=== PATIENT | female | born 1955 | race Two or more races ===

== ENCOUNTER 2020-09-12 05:18 | Inpatient (IN) | payer OTHER ==
[~2020-09-12] VITALS: Ht 165.1 cm; Wt 67.6 kg
[2020-09-12 05:56] LABS: Basophils # (auto) 0.1 10 ^3/uL (0-0.2); Basophils % (auto) 1.3 % (0.0-2.0); Eosinophils # (auto) 0.4 10 ^3/uL (0-0.8); Eosinophils % (auto) 8.1 % (0.0-7.0); Hematocrit 50.4 % (36.0-46.0); Hemoglobin 16.8 g/dL (12.2-16.2); Lymphocytes # (auto) 2.4 10 ^3/uL (0.4-5.4); Lymphocytes % (auto) 45.8 % (10.0-50.0); Mean Corpuscular Hemoglobin 29.4 pg (28.0-32.0); Mean Corpuscular Hgb Conc. 33.3 g/dL (32.0-36.0); Mean Corpuscular Volume 88.4 fL (80.0-100.0); Monocytes # (auto) 0.4 10 ^3/uL (0-1.3); Monocytes % (auto) 6.7 % (0.0-12.0); Neutrophils % (auto) 38.1 % (37.0-80.0); Nucleated Red Blood Cells % 0.1 %; Red Blood Cells 5.69 10^6/uL (4.0-5.20); Red Cell Distribution Width 16.8 % (11.8-14.3); White Blood Cell 5.3 10^3/uL (4.4-10.8)
[2020-09-12] MEDS ORDERED: LABETALOL HCL 5 MG/ML 4ML SYRINGE IV ONE (06:00)
[2020-09-12 06:13] LABS: Albumin 4.3 g/dL (3.4-5.0); Calcium 8.8 mg/dL (8.5-10.1)
[2020-09-12 06:18] LABS: BUN/Creatinine Ratio 15.5; Bilirubin, Total 0.4 mg/dL (0.2-1.0)
[2020-09-12] MEDS ORDERED: ALBUTEROL SULF 2.5 MG/0.5ML(0.5%) NEB SOLN NEB ONE (07:15)
[2020-09-12] MEDS ORDERED: methylPREDNISolone SOD SUCC 125 MG/2 ML VL IV ONE (07:15)
[2020-09-12] MEDS ORDERED: IPRATROPIUM BROM 0.5 MG/2.5ML INH SOL NEB ONE (07:15)
[2020-09-12] MEDS ORDERED: ASPirin 81 mg TAB PO ONE (07:45)
[2020-09-12] MEDS ORDERED: ENOXAPARIN SOD 60 MG/0.6 ML SYRINGE SC ONE (07:45)
[2020-09-12] MEDS ORDERED: NITROGLYCERIN 0.4 MG SL TAB SL PRN (10:30)
[2020-09-12] MEDS ORDERED: IOHEXOL 350 MG/ML 100ML IJ ONE (10:30)
[2020-09-12] MEDS ORDERED: NITROGLYCERIN 0.4MG/HR TOPICAL PATCH TD ONE (10:30)
[2020-09-12 10:41] VITALS: BP 152/88
[2020-09-12] MEDS: IPRATROPIUM BROM 0.5 MG/2.5ML INH SOL NEB SCH ×2 (11:39→20:10)
[2020-09-12] MEDS: ALBUTEROL SULF 2.5 MG/0.5ML(0.5%) NEB SOLN NEB SCH ×2 (11:39→20:10)
[2020-09-12] MEDS ORDERED: LISI-716 PO (14:56)
[2020-09-12] MEDS ORDERED: ATOR20TA PO (14:56)
[2020-09-12] MEDS ORDERED: ASPI-543 PO (14:56)
[2020-09-12] MEDS ORDERED: HYDR25TA4 PO (14:56)
[2020-09-12] MEDS ORDERED: VARE1TAB PO (14:56)
[2020-09-12] MEDS: hydrALAZINE HCL 20 MG/ML VL IV PRN (17:48)
[2020-09-12 17:51] LABS: Urine Bacteria NONE SEEN /hpf (None Seen); Urine Blood Negative /uL (Negative); Urine Specific Gravity 1.036 (1.001-1.035); Urine WBC 13 /hpf (0 - 5)
[2020-09-12] MEDS: ACETAMINOPHEN 500 MG TAB PO PRN (19:50)
[2020-09-12] MEDS: BUDESONIDE (INHALATION) 0.5 MG/2 ML NEB NEB SCH (20:10)
[2020-09-12 22:00] VITALS: BP 162/77
[2020-09-12] MEDS ORDERED: LISINOPRIL 10 MG TAB PO SCH (22:00)
[2020-09-12] MEDS: ATORVASTATIN 20 MG TAB PO SCH (22:02)
[2020-09-12] MEDS: methylPREDNISolone SOD SUCC 125 MG/2 ML VL IV SCH (22:02)
[2020-09-12] MEDS: ENOXAPARIN SOD 60 MG/0.6 ML SYRINGE SC SCH (22:03)
[2020-09-13] MEDS: HYDROcodone-ACET 5/325MG TAB PO PRN ×2 (02:39→12:45)
[2020-09-13 05:00] VITALS: BP 151/82
[2020-09-13 06:33] LABS: Basophils # (auto) 0 10 ^3/uL (0-0.2); Basophils % (auto) 0.1 % (0.0-2.0); Eosinophils # (auto) 0 10 ^3/uL (0-0.8); Eosinophils % (auto) 0.1 % (0.0-7.0); Hematocrit 44.3 % (36.0-46.0); Hemoglobin 15.6 g/dL (12.2-16.2); Lymphocytes # (auto) 0.3 10 ^3/uL (0.4-5.4); Lymphocytes % (auto) 5.2 % (10.0-50.0); Mean Corpuscular Hemoglobin 30.3 pg (28.0-32.0); Mean Corpuscular Hgb Conc. 35.1 g/dL (32.0-36.0); Mean Corpuscular Volume 86.3 fL (80.0-100.0); Monocytes # (auto) 0.1 10 ^3/uL (0-1.3); Monocytes % (auto) 1.2 % (0.0-12.0); Neutrophils # (auto) 5.5 10 ^3/uL (1.6-8.6); Neutrophils % (auto) 93.4 % (37.0-80.0); Nucleated Red Blood Cells % 0.1 %; Red Blood Cells 5.13 10^6/uL (4.0-5.20); Red Cell Distribution Width 16.5 % (11.8-14.3); White Blood Cell 5.9 10^3/uL (4.4-10.8)
[2020-09-13] MEDS: IPRATROPIUM BROM 0.5 MG/2.5ML INH SOL NEB SCH ×4 (06:46→22:38)
[2020-09-13] MEDS: BUDESONIDE (INHALATION) 0.5 MG/2 ML NEB NEB SCH ×2 (06:46→19:32)
[2020-09-13] MEDS: ALBUTEROL SULF 2.5 MG/0.5ML(0.5%) NEB SOLN NEB SCH ×4 (06:46→22:38)
[2020-09-13 06:51] LABS: Potassium 4.3 mmol/L (3.5-5.1)
[2020-09-13 06:53] LABS: INR 0.96 (0.9-1.15); Partial Thromboplastin Time 27.9 sec (23.0-31.2)
[2020-09-13 06:56] LABS: BUN/Creatinine Ratio 19.8; Calcium 8.7 mg/dL (8.5-10.1)
[2020-09-13 09:00] VITALS: BP 156/67
[2020-09-13] MEDS: methylPREDNISolone SOD SUCC 125 MG/2 ML VL IV SCH (09:16)
[2020-09-13] MEDS: ASPirin-EC 81 mg tab PO SCH (09:17)
[2020-09-13] MEDS: FAMOTIDINE 20 MG TAB PO SCH (09:18)
[2020-09-13] MEDS: HCTZ 25 MG TAB PO SCH (09:18)
[2020-09-13] MEDS: PANTOPRAZOLE 40 MG TAB PO SCH (09:18)
[2020-09-13] MEDS: LISINOPRIL 10 MG TAB PO SCH (09:19)
[2020-09-13] MEDS: ENOXAPARIN SOD 60 MG/0.6 ML SYRINGE SC SCH ×2 (09:19→21:49)
[2020-09-13] MEDS: MORPHINE SULFATE INJECTION 2 MG/ML SYRG IV PRN ×3 (09:20→19:52)
[2020-09-13] MEDS: ONDANSETRON HCL 4 MG/2 ML VIAL IV PRN (09:20)
[2020-09-13] MEDS ORDERED: FUROSEMIDE 20 MG/2 ML VIAL IV ONE (12:30)
[2020-09-13] MEDS: hydrALAZINE HCL 20 MG/ML VL IV PRN (12:46)
[2020-09-13 13:00] VITALS: BP 177/90
[2020-09-13] MEDS ORDERED: hydrALAZINE HCL 20 MG/ML VL IV PRN (15:30)
[2020-09-13] MEDS ORDERED: AZITHROMYCIN 500MG/ 250ML 250 ML IV ONE (15:45)
[2020-09-13] MEDS ORDERED: VANCOMYCIN PER PHARMACY 0 MG IV SCH (15:45)
[2020-09-13 17:00] VITALS: BP 129/75
[2020-09-13] MEDS ORDERED: PIPERACILLIN-TAZOB 3.375GM 100 ML IV SCH (18:00)
[2020-09-13] MEDS: methylPREDNISolone SOD SUCC 40 MG/ML VL IV SCH (21:11)
[2020-09-13] MEDS: ATORVASTATIN 20 MG TAB PO SCH (21:11)
[2020-09-13] MEDS: LORazepam 2MG/ML-1ML VIAL IV PRN (21:11)
[2020-09-13] MEDS: METOPROLOL TARTRATE 25 MG TAB PO SCH (21:12)
[2020-09-13] MEDS: PIPERACILLIN-TAZOB 3.375GM 100 ML IV SCH (21:52)
[2020-09-13] MEDS: VANCOMYCIN 1GM/250ML 250 ML IV SCH (23:00)
[2020-09-14] MEDS ORDERED: AZITHROMYCIN 500MG/ 250ML 250 ML IV ONE
[2020-09-14 05:15] VITALS: BP 152/85
[2020-09-14] MEDS: IPRATROPIUM BROM 0.5 MG/2.5ML INH SOL NEB SCH ×5 (05:51→22:14)
[2020-09-14] MEDS: BUDESONIDE (INHALATION) 0.5 MG/2 ML NEB NEB SCH ×2 (05:51→18:55)
[2020-09-14] MEDS: ALBUTEROL SULF 2.5 MG/0.5ML(0.5%) NEB SOLN NEB SCH ×5 (05:51→22:14)
[2020-09-14] MEDS: PIPERACILLIN-TAZOB 3.375GM 100 ML IV SCH ×4 (06:02→20:54)
[2020-09-14] MEDS: LORazepam 2MG/ML-1ML VIAL IV PRN ×2 (06:02→21:24)
[2020-09-14 06:50] LABS: Basophils # (auto) 0 10 ^3/uL (0-0.2); Eosinophils # (auto) 0 10 ^3/uL (0-0.8); Hemoglobin 15.2 g/dL (12.2-16.2); Lymphocytes # (auto) 0.3 10 ^3/uL (0.4-5.4); Lymphocytes % (auto) 3.4 % (10.0-50.0); Mean Corpuscular Hemoglobin 30.2 pg (28.0-32.0); Mean Corpuscular Hgb Conc. 34.6 g/dL (32.0-36.0); Mean Corpuscular Volume 87.2 fL (80.0-100.0); Monocytes # (auto) 0.1 10 ^3/uL (0-1.3); Monocytes % (auto) 1.5 % (0.0-12.0); Neutrophils # (auto) 8.3 10 ^3/uL (1.6-8.6); Neutrophils % (auto) 95.1 % (37.0-80.0); Red Blood Cells 5.05 10^6/uL (4.0-5.20); Red Cell Distribution Width 16.7 % (11.8-14.3); White Blood Cell 8.7 10^3/uL (4.4-10.8)
[2020-09-14 07:44] LABS: Cholesterol 181 mg/dL (< 200); HDL Cholesterol 88 mg/dL (40-59); LDL Cholesterol 80 mg/dL (< 100); Triglycerides 88 mg/dL (< 150)
[2020-09-14 07:51] LABS: BUN/Creatinine Ratio 28.3; Calcium 8.7 mg/dL (8.5-10.1)
[2020-09-14] MEDS ORDERED: CLOPIDOGREL 300 MG TAB PO ONE (08:30)
[2020-09-14] MEDS ORDERED: HEPARIN DRIP/D5W 100UNITS/ML 250 ML IV SCH (08:45)
[2020-09-14] MEDS: methylPREDNISolone SOD SUCC 40 MG/ML VL IV SCH ×2 (10:39→22:34)
[2020-09-14] MEDS: FUROSEMIDE 20 MG/2 ML VIAL IV SCH (10:39)
[2020-09-14] MEDS: ASPirin-EC 81 mg tab PO SCH (10:40)
[2020-09-14] MEDS: AZITHROMYCIN 500MG/ 250ML 250 ML IV SCH (10:40)
[2020-09-14] MEDS: FAMOTIDINE 20 MG TAB PO SCH (10:41)
[2020-09-14] MEDS: METOPROLOL TARTRATE 25 MG TAB PO SCH ×2 (10:41→22:35)
[2020-09-14] MEDS: PANTOPRAZOLE 40 MG TAB PO SCH (10:41)
[2020-09-14] MEDS: HCTZ 25 MG TAB PO SCH (10:42)
[2020-09-14] MEDS: LISINOPRIL 10 MG TAB PO SCH (10:43)
[2020-09-14] MEDS: ONDANSETRON HCL 4 MG/2 ML VIAL IV PRN ×2 (11:10→17:15)
[2020-09-14] MEDS: MORPHINE SULFATE INJECTION 2 MG/ML SYRG IV PRN ×3 (11:10→23:00)
[2020-09-14 13:33] VITALS: BP 169/80
[2020-09-14] MEDS: VANCOMYCIN 1GM/250ML 250 ML IV SCH (17:01)
[2020-09-14 17:08] VITALS: BP 125/74
[2020-09-14 18:12] LABS: INR 2.05 (0.9-1.15); Partial Thromboplastin Time 40.4 sec (23.0-31.2)
[2020-09-14] MEDS: HEPARIN DRIP/D5W 100UNITS/ML 250 ML IV SCH (18:54)
[2020-09-14] MEDS: HYDROcodone-ACET 5/325MG TAB PO PRN (21:25)
[2020-09-14 22:00] VITALS: BP 151/83
[2020-09-14] MEDS: ATORVASTATIN 20 MG TAB PO SCH (22:34)
[2020-09-15 01:22] LABS: INR 0.98 (0.9-1.15); Partial Thromboplastin Time 45.6 sec (23.0-31.2)
[2020-09-15] MEDS: ALBUTEROL SULF 2.5 MG/0.5ML(0.5%) NEB SOLN NEB PRN (02:17)
[2020-09-15] MEDS: IPRATROPIUM BROM 0.5 MG/2.5ML INH SOL NEB PRN (02:17)
[2020-09-15] MEDS: PIPERACILLIN-TAZOB 3.375GM 100 ML IV SCH ×4 (02:20→18:15)
[2020-09-15] MEDS: ONDANSETRON HCL 4 MG/2 ML VIAL IV PRN ×2 (02:29→18:16)
[2020-09-15] MEDS: ACETAMINOPHEN 500 MG TAB PO PRN (05:49)
[2020-09-15] MEDS: IPRATROPIUM BROM 0.5 MG/2.5ML INH SOL NEB SCH ×5 (06:27→22:47)
[2020-09-15] MEDS: ALBUTEROL SULF 2.5 MG/0.5ML(0.5%) NEB SOLN NEB SCH ×5 (06:27→22:48)
[2020-09-15 07:18] LABS: Basophils # (auto) 0 10 ^3/uL (0-0.2); Eosinophils # (auto) 0 10 ^3/uL (0-0.8); Hematocrit 44.7 % (36.0-46.0); Hemoglobin 15.2 g/dL (12.2-16.2); Lymphocytes # (auto) 0.5 10 ^3/uL (0.4-5.4); Lymphocytes % (auto) 6.2 % (10.0-50.0); Mean Corpuscular Hemoglobin 29.6 pg (28.0-32.0); Mean Corpuscular Volume 87.2 fL (80.0-100.0); Monocytes # (auto) 0.3 10 ^3/uL (0-1.3); Monocytes % (auto) 4.3 % (0.0-12.0); Neutrophils # (auto) 6.7 10 ^3/uL (1.6-8.6); Neutrophils % (auto) 89.5 % (37.0-80.0); Nucleated Red Blood Cells % 0.1 %; Red Blood Cells 5.13 10^6/uL (4.0-5.20); Red Cell Distribution Width 16.1 % (11.8-14.3); White Blood Cell 7.5 10^3/uL (4.4-10.8)
[2020-09-15 07:31] LABS: Calcium 8.6 mg/dL (8.5-10.1); Magnesium 2.7 mg/dL (1.6-2.6); Potassium 5.2 mmol/L (3.5-5.1)
[2020-09-15 07:37] LABS: BUN/Creatinine Ratio 27.5
[2020-09-15 08:57] VITALS: BP 128/77
[2020-09-15] MEDS: FUROSEMIDE 20 MG/2 ML VIAL IV SCH (09:25)
[2020-09-15] MEDS: methylPREDNISolone SOD SUCC 40 MG/ML VL IV SCH (09:25)
[2020-09-15 09:28] LABS: INR 1.02 (0.9-1.15)
[2020-09-15 09:36] VITALS: BP 127/72
[2020-09-15 09:41] LABS: Partial Thromboplastin Time 82.8 sec (23.0-31.2)
[2020-09-15] MEDS: FAMOTIDINE 20 MG TAB PO SCH (10:00)
[2020-09-15] MEDS ORDERED: MIDAZOLAM HCL 2MG/2ML 2ml VIAL (1mg/ml) IV ONE (10:00)
[2020-09-15] MEDS: AZITHROMYCIN 500MG/ 250ML 250 ML IV SCH (10:00)
[2020-09-15] MEDS: PANTOPRAZOLE 40 MG TAB PO SCH (10:00)
[2020-09-15] MEDS ORDERED: fentaNYL CITRATE 100 MCG/2 ML VL IV ONE (10:00)
[2020-09-15] MEDS ORDERED: LIDOCAINE VISCOUS 2% 15ML UD MT ONE (10:00)
[2020-09-15] MEDS: HEPARIN DRIP/D5W 100UNITS/ML 250 ML IV SCH (10:05)
[2020-09-15] MEDS: BUDESONIDE (INHALATION) 0.5 MG/2 ML NEB NEB SCH ×2 (10:49→22:48)
[2020-09-15] MEDS: ASPirin-EC 81 mg tab PO SCH (11:15)
[2020-09-15] MEDS: HCTZ 25 MG TAB PO SCH (11:16)
[2020-09-15] MEDS: METOPROLOL TARTRATE 25 MG TAB PO SCH ×2 (11:17→22:34)
[2020-09-15] MEDS ORDERED: LIDOCAINE 2%HCL (LOCAL ANESTH.) INJ 20ML MDV ONE (12:33)
[2020-09-15] MEDS ORDERED: ANGIOMAX 250 MG VIAL IV ONE (12:39)
[2020-09-15] MEDS ORDERED: VERAPAMIL 2.5MG/ML INJ 2ML VIAL IV ONE (12:39)
[2020-09-15] MEDS ORDERED: HEPARIN SODIUM (PORCINE) 5000 UNITS/ML 1ML VIAL ONE (12:40)
[2020-09-15] MEDS ORDERED: IODIXANOL 320MG/ML 100ML BTL IV ONE (12:40)
[2020-09-15] MEDS ORDERED: SODIUM CHL 0.9% 0 ML ONE (12:40)
[2020-09-15] MEDS ORDERED: VANCOMYCIN 1GM/250ML 250 ML IV SCH (17:00)
[2020-09-15 17:35] VITALS: BP 142/81
[2020-09-15] MEDS: MORPHINE SULFATE INJECTION 2 MG/ML SYRG IV PRN (18:16)
[2020-09-15] MEDS ORDERED: SODIUM BICARBONATE 50ML VIAL 75 ML in D5W 5% 1,000 ML IV ONE (18:30)
[2020-09-15 18:48] LABS: INR 0.97 (0.9-1.15); Partial Thromboplastin Time 30.8 sec (23.0-31.2)
[2020-09-15 22:00] VITALS: BP 133/85
[2020-09-15] MEDS: HYDROcodone-ACET 5/325MG TAB PO PRN (22:35)
[2020-09-15] MEDS: ATORVASTATIN 20 MG TAB PO SCH (22:36)
[2020-09-15] MEDS: APIXABAN 5 MG TAB PO SCH (22:36)
[2020-09-15] MEDS ORDERED: NICOTINE 14 MG/24HR TOPICAL PATCH TD ONE (23:30)
[2020-09-16] MEDS: PIPERACILLIN-TAZOB 3.375GM 100 ML IV SCH ×3 (01:54→14:21)
[2020-09-16] MEDS: MORPHINE SULFATE INJECTION 2 MG/ML SYRG IV PRN ×3 (01:55→20:36)
[2020-09-16] MEDS: IPRATROPIUM BROM 0.5 MG/2.5ML INH SOL NEB PRN (02:30)
[2020-09-16] MEDS: ALBUTEROL SULF 2.5 MG/0.5ML(0.5%) NEB SOLN NEB PRN (02:30)
[2020-09-16] MEDS: ONDANSETRON HCL 4 MG/2 ML VIAL IV PRN ×3 (03:05→20:25)
[2020-09-16 05:00] VITALS: BP 119/79
[2020-09-16] MEDS: HYDROcodone-ACET 5/325MG TAB PO PRN (05:15)
[2020-09-16] MEDS: IPRATROPIUM BROM 0.5 MG/2.5ML INH SOL NEB SCH ×5 (06:09→22:58)
[2020-09-16] MEDS: ALBUTEROL SULF 2.5 MG/0.5ML(0.5%) NEB SOLN NEB SCH ×5 (06:09→22:58)
[2020-09-16] MEDS: BUDESONIDE (INHALATION) 0.5 MG/2 ML NEB NEB SCH ×2 (06:09→19:13)
[2020-09-16 06:31] LABS: Basophils # (auto) 0 10 ^3/uL (0-0.2); Basophils % (auto) 0.1 % (0.0-2.0); Eosinophils # (auto) 0 10 ^3/uL (0-0.8); Eosinophils % (auto) 0.1 % (0.0-7.0); Hematocrit 42.3 % (36.0-46.0); Hemoglobin 14.3 g/dL (12.2-16.2); Lymphocytes % (auto) 17.9 % (10.0-50.0); Mean Corpuscular Hemoglobin 29.6 pg (28.0-32.0); Mean Corpuscular Hgb Conc. 33.9 g/dL (32.0-36.0); Mean Corpuscular Volume 87.3 fL (80.0-100.0); Monocytes # (auto) 0.6 10 ^3/uL (0-1.3); Monocytes % (auto) 11.7 % (0.0-12.0); Neutrophils # (auto) 3.9 10 ^3/uL (1.6-8.6); Neutrophils % (auto) 70.2 % (37.0-80.0); Red Blood Cells 4.85 10^6/uL (4.0-5.20); White Blood Cell 5.5 10^3/uL (4.4-10.8)
[2020-09-16 08:00] VITALS: BP 140/78
[2020-09-16 09:08] VITALS: BP 140/78
[2020-09-16] MEDS: METOPROLOL TARTRATE 25 MG TAB PO SCH ×3 (10:00→22:34)
[2020-09-16] MEDS: APIXABAN 5 MG TAB PO SCH ×2 (10:29→22:31)
[2020-09-16] MEDS: PANTOPRAZOLE 40 MG TAB PO SCH (10:29)
[2020-09-16] MEDS: FAMOTIDINE 20 MG TAB PO SCH (10:29)
[2020-09-16] MEDS: ASPirin-EC 81 mg tab PO SCH (10:30)
[2020-09-16] MEDS: AZITHROMYCIN 500MG/ 250ML 250 ML IV SCH (10:30)
[2020-09-16] MEDS: HCTZ 25 MG TAB PO SCH (10:32)
[2020-09-16 11:02] LABS: Hepatitis B Surface Antibody Positive
[2020-09-16 11:05] LABS: BUN/Creatinine Ratio 28.4; Calcium 7.7 mg/dL (8.5-10.1); Potassium 4.1 mmol/L (3.5-5.1)
[2020-09-16 11:37] LABS: Hepatitis A Total Antibody Negative
[2020-09-16 13:00] VITALS: BP 123/68
[2020-09-16 15:24] LABS: Hepatitis B Core Total AB Negative; Hepatitis B Surface Antigen Negative (Negative)
[2020-09-16 16:54] VITALS: BP 120/68
[2020-09-16 22:00] VITALS: BP 131/61
[2020-09-16] MEDS: ATORVASTATIN 20 MG TAB PO SCH (22:31)
[2020-09-17] MEDS ORDERED: NICOTINE 14 MG/24HR TOPICAL PATCH TD SCH ×2 (01:00)
[2020-09-17 05:00] VITALS: BP 117/64
[2020-09-17] MEDS: MORPHINE SULFATE INJECTION 2 MG/ML SYRG IV PRN ×3 (05:17→15:29)
[2020-09-17] MEDS: IPRATROPIUM BROM 0.5 MG/2.5ML INH SOL NEB SCH ×3 (07:42→14:39)
[2020-09-17] MEDS: ALBUTEROL SULF 2.5 MG/0.5ML(0.5%) NEB SOLN NEB SCH ×3 (07:42→14:39)
[2020-09-17] MEDS: BUDESONIDE (INHALATION) 0.5 MG/2 ML NEB NEB SCH (07:43)
[2020-09-17 09:48] LABS: BUN/Creatinine Ratio 28.6; Calcium 8.1 mg/dL (8.5-10.1); Potassium 4.4 mmol/L (3.5-5.1)
[2020-09-17] MEDS: AZITHROMYCIN 500MG/ 250ML 250 ML IV SCH (09:54)
[2020-09-17] MEDS: PANTOPRAZOLE 40 MG TAB PO SCH (09:57)
[2020-09-17] MEDS: APIXABAN 5 MG TAB PO SCH (09:58)
[2020-09-17] MEDS: ASPirin-EC 81 mg tab PO SCH (09:58)
[2020-09-17] MEDS: METOPROLOL TARTRATE 25 MG TAB PO SCH (10:00)
[2020-09-17] MEDS: HCTZ 25 MG TAB PO SCH (10:02)
[2020-09-17] MEDS: FAMOTIDINE 20 MG TAB PO SCH (10:07)
[2020-09-17 12:36] VITALS: BP 98/65
[2020-09-17 16:24] VITALS: BP 117/64
[2020-09-17 16:36] VITALS: BP 149/78
[2020-09-20 13:50] LABS: Hepatitis C Antibody Negative (Negative)
[2020-09-22] MEDS ORDERED: APIXABAN 5 MG TAB PO SCH (22:00)
== END 2020-09-17 19:10 | disposition home or self-care (01) | DRG 175 ==
LOC: EDBD 05:18 → ER 05:18 → TELE 10:24 → TELE-WESTW 14:34
PROVIDERS: ADMIT Nurse Practitioner Acute Care; ATTEND Internal Medicine
PROC: 5A09357 Assistance with Respiratory Ventilation, Less than 24 Consecutive Hours, Continuous Positive Airway Pressure (ICD-10-PCS; 2020-09-12)
PROC: 4A023N7 Measurement of Cardiac Sampling and Pressure, Left Heart, Percutaneous Approach (ICD-10-PCS; principal; 2020-09-15)
PROC: B211YZZ Fluoroscopy of Multiple Coronary Arteries using Other Contrast (ICD-10-PCS; 2020-09-15)
PROC: B215YZZ Fluoroscopy of Left Heart using Other Contrast (ICD-10-PCS; 2020-09-15)
PROC: B245ZZ4 Ultrasonography of Left Heart, Transesophageal (ICD-10-PCS; 2020-09-15)
DX: I26.99 Other pulmonary embolism without acute cor pulmonale (principal); I21.A1 Myocardial infarction type 2; J96.21 Acute and chronic respiratory failure with hypoxia; J96.22 Acute and chronic respiratory failure with hypercapnia; N18.31 Chronic kidney disease, stage 3a; I12.9 Hypertensive chronic kidney disease with stage 1 through stage 4 chronic kidney disease, or unspecified chronic kidney disease; J43.9 Emphysema, unspecified; Z20.822 Contact with and (suspected) exposure to COVID-19; F17.210 Nicotine dependence, cigarettes, uncomplicated; Z79.01 Long term (current) use of anticoagulants; Z90.710 Acquired absence of both cervix and uterus; Z71.6 Tobacco abuse counseling
CPT/HCPCS: 36415; 36600; 71045; 71275; 80048; 80053; 80061; 80202; 81001; 82565; 82805; 83036; 83605; 83735; 83880; 84484; 85025; 85049; 85379; 85610; 85730; 86141; 86703; 86704; 86706; 86708; 86803; 87040; 87340; 87426; 93005; 93306; 93312; 93458; 93970; 94640; 94660; 96372; 96374; 99152; 99291; G0378; J2250; J2405; J2543; Q9967

== ENCOUNTER 2020-09-21 16:06 | Inpatient (IN) | payer OTHER ==
[~2020-09-21] VITALS: Ht 170.2 cm; Wt 75.0 kg
[~2020-09-21 16:06] MED LIST: ASPI-543 PO; ATOR20TA PO; HYDR25TA4 PO; LISI-716 PO; VARE1TAB PO
[2020-09-21] MEDS ORDERED: IPRATROPIUM BROM 0.5 MG/2.5ML INH SOL NEB ONE (16:30)
[2020-09-21] MEDS ORDERED: ALBUTEROL SULF 2.5 MG/0.5ML(0.5%) NEB SOLN NEB ONE (16:30)
[2020-09-21] MEDS ORDERED: methylPREDNISolone SOD SUCC 125 MG/2 ML VL IV ONE (16:30)
[2020-09-21 18:06] LABS: Eosinophils # (auto) 0 10 ^3/uL (0-0.8); Monocytes # (auto) 0.4 10 ^3/uL (0-1.3); Monocytes % (auto) 4.7 % (0.0-12.0); Red Cell Distribution Width 15.8 % (11.8-14.3)
[2020-09-21 18:08] LABS: Basophils # (auto) 0.1 10 ^3/uL (0-0.2); Basophils % (auto) 0.7 % (0.0-2.0); Eosinophils % (auto) 0.1 % (0.0-7.0); Hematocrit 18.9 % (36.0-46.0); Lymphocytes # (auto) 0.9 10 ^3/uL (0.4-5.4); Lymphocytes % (auto) 9.8 % (10.0-50.0); Mean Corpuscular Hemoglobin 29.9 pg (28.0-32.0); Mean Corpuscular Hgb Conc. 34.5 g/dL (32.0-36.0); Mean Corpuscular Volume 86.7 fL (80.0-100.0); Neutrophils # (auto) 7.4 10 ^3/uL (1.6-8.6); Neutrophils % (auto) 84.7 % (37.0-80.0); Red Blood Cells 2.18 10^6/uL (4.0-5.20); White Blood Cell 8.7 10^3/uL (4.4-10.8)
[2020-09-21 18:22] LABS: Calcium 8.1 mg/dL (8.5-10.1); Hemoglobin 6.5 g/dL (12.2-16.2); Potassium 3.9 mmol/L (3.5-5.1)
[2020-09-21 18:27] LABS: Bilirubin, Total 0.3 mg/dL (0.2-1.0); Total Protein 5.5 g/dL (6.4-8.2)
[2020-09-21] MEDS ORDERED: IOHEXOL 350 MG/ML 100ML IJ ONE (18:34)
[2020-09-21] MEDS ORDERED: SODIUM CHLORIDE 0.9% 500 ML IV ONE (19:15)
[2020-09-21] MEDS ORDERED: MORPHINE SULF INJ 2 MG/ML SYRINGE 1ML IV PRN (19:15)
[2020-09-21] MEDS ORDERED: NITROGLYCERIN 0.4 MG SL TAB SL PRN (19:15)
[2020-09-21] MEDS: IPRATROPIUM BROM 0.5 MG/2.5ML INH SOL NEB PRN (19:42)
[2020-09-21] MEDS: ALBUTEROL SULF 2.5 MG/0.5ML(0.5%) NEB SOLN NEB PRN (19:42)
[2020-09-21 22:46] VITALS: BP 110/60
[2020-09-21 23:01] VITALS: BP 102/60
[2020-09-21] MEDS ORDERED: PNEUMOCOCCAL VACC POLYS 25 MCG/0.5 ML VIAL IM ONE (23:15)
[2020-09-21] MEDS ORDERED: METO25TA5 PO (23:16)
[2020-09-21] MEDS: SUCRALFATE 1 GM/10 ML ORAL SUSP PO SCH (23:32)
[2020-09-21] MEDS: PANTOPRAZOLE 40 MG/10 ML VIAL INJ IV SCH (23:33)
[2020-09-22] VITALS (10 sets, daily range): BP systolic 101–143; BP diastolic 62–77
[2020-09-22] MEDS ORDERED: FERR-7 PO (04:59)
[2020-09-22] MEDS ORDERED: MONT5CHW23 PO (04:59)
[2020-09-22] MEDS ORDERED: LOSA100T25 PO (04:59)
[2020-09-22] MEDS ORDERED: OLAN1TAB19 PO (04:59)
[2020-09-22] MEDS ORDERED: FEXO-42 PO (04:59)
[2020-09-22] MEDS ORDERED: GABA100C9 PO (04:59)
[2020-09-22] MEDS: SUCRALFATE 1 GM/10 ML ORAL SUSP PO SCH ×4 (06:24→21:16)
[2020-09-22] MEDS ORDERED: PNEUMOCOCCAL VACC POLYS 25 MCG/0.5 ML VIAL IM ONE (07:00)
[2020-09-22 08:02] LABS: Basophils # (auto) 0 10 ^3/uL (0-0.2); Basophils % (auto) 0.4 % (0.0-2.0); Eosinophils # (auto) 0 10 ^3/uL (0-0.8); Hemoglobin 8.5 g/dL (12.2-16.2); Lymphocytes # (auto) 0.5 10 ^3/uL (0.4-5.4); Lymphocytes % (auto) 6.4 % (10.0-50.0); Mean Corpuscular Hemoglobin 31.2 pg (28.0-32.0); Mean Corpuscular Hgb Conc. 35.5 g/dL (32.0-36.0); Mean Corpuscular Volume 87.8 fL (80.0-100.0); Monocytes # (auto) 0.2 10 ^3/uL (0-1.3); Monocytes % (auto) 2.3 % (0.0-12.0); Neutrophils # (auto) 7.8 10 ^3/uL (1.6-8.6); Neutrophils % (auto) 90.9 % (37.0-80.0); Red Blood Cells 2.73 10^6/uL (4.0-5.20); Red Cell Distribution Width 14.5 % (11.8-14.3); White Blood Cell 8.5 10^3/uL (4.4-10.8)
[2020-09-22 08:26] LABS: Albumin 3.2 g/dL (3.4-5.0); Calcium 7.8 mg/dL (8.5-10.1); Potassium 4.1 mmol/L (3.5-5.1)
[2020-09-22 08:30] LABS: BUN/Creatinine Ratio 54.1; Bilirubin, Total 0.4 mg/dL (0.2-1.0); Total Protein 5.5 g/dL (6.4-8.2)
[2020-09-22] MEDS: PANTOPRAZOLE 40 MG/10 ML VIAL INJ IV SCH ×2 (08:33→21:16)
[2020-09-22 12:59] LABS: Urine Bacteria NONE SEEN /hpf (None Seen); Urine Blood Negative /uL (Negative); Urine Specific Gravity 1.019 (1.001-1.035); Urine WBC 1 /hpf (0 - 5)
[2020-09-22] MEDS: ALBUTEROL SULF 2.5 MG/0.5ML(0.5%) NEB SOLN NEB PRN ×2 (13:31→19:05)
[2020-09-22] MEDS: IPRATROPIUM BROM 0.5 MG/2.5ML INH SOL NEB PRN ×2 (13:31→19:05)
[2020-09-22] MEDS: ACETAMINOPHEN 325 MG TAB PO PRN (14:53)
[2020-09-22 15:01] LABS: Hematocrit 23.5 % (36.0-46.0); Hemoglobin 8.1 g/dL (12.2-16.2)
[2020-09-22 17:27] LABS: INR 0.97 (0.9-1.15); Partial Thromboplastin Time < 20.0 sec (23.0-31.2)
[2020-09-22] MEDS: ATORVASTATIN 20 MG TAB PO SCH (21:16)
[2020-09-22] MEDS ORDERED: HYDROcodone-ACET 5/325MG TAB PO ONE (23:30)
[2020-09-23] MEDS: ALBUTEROL SULF 2.5 MG/0.5ML(0.5%) NEB SOLN NEB PRN ×5 (04:13→22:31)
[2020-09-23] MEDS: IPRATROPIUM BROM 0.5 MG/2.5ML INH SOL NEB PRN ×5 (04:13→22:31)
[2020-09-23 05:00] VITALS: BP 102/57
[2020-09-23] MEDS: ACETAMINOPHEN 325 MG TAB PO PRN ×2 (05:12→18:41)
[2020-09-23 06:57] LABS: Hematocrit 20.5 % (36.0-46.0); Hemoglobin 7.2 g/dL (12.2-16.2)
[2020-09-23] MEDS: SUCRALFATE 1 GM/10 ML ORAL SUSP PO SCH ×4 (07:00→21:03)
[2020-09-23 09:00] VITALS: BP 138/71
[2020-09-23] MEDS: PANTOPRAZOLE 40 MG/10 ML VIAL INJ IV SCH ×2 (09:09→21:03)
[2020-09-23] MEDS ORDERED: LIDOCAINE 2%HCL (LOCAL ANESTH.) INJ 20ML MDV ONE (12:50)
[2020-09-23] MEDS ORDERED: MIDAZOLAM HCL 1MG/1ML-2 ML VIAL ONE (12:52)
[2020-09-23] MEDS ORDERED: fentaNYL CITRATE 100 MCG/2 ML VL ONE (12:52)
[2020-09-23 16:06] LABS: Hemoglobin 7.4 g/dL (12.2-16.2)
[2020-09-23 17:00] VITALS: BP 124/66
[2020-09-23] MEDS: ATORVASTATIN 20 MG TAB PO SCH (21:03)
[2020-09-23 22:00] VITALS: BP 106/72
[2020-09-23] MEDS: ALPRAZolam 0.5 MG TAB PO PRN (23:46)
[2020-09-24] VITALS (10 sets, daily range): BP systolic 104–133; BP diastolic 58–76
[2020-09-24] MEDS: IPRATROPIUM BROM 0.5 MG/2.5ML INH SOL NEB PRN ×5 (03:23→23:40)
[2020-09-24] MEDS: ALBUTEROL SULF 2.5 MG/0.5ML(0.5%) NEB SOLN NEB PRN ×5 (03:23→23:40)
[2020-09-24 05:48] LABS: Basophils # (auto) 0 10 ^3/uL (0-0.2); Eosinophils # (auto) 0 10 ^3/uL (0-0.8); Lymphocytes # (auto) 0.9 10 ^3/uL (0.4-5.4); Monocytes # (auto) 0.7 10 ^3/uL (0-1.3); Nucleated Red Blood Cells % 0.1 %
[2020-09-24 05:52] LABS: Basophils % (auto) 0.1 % (0.0-2.0); Eosinophils % (auto) 0.4 % (0.0-7.0); Hematocrit 19.5 % (36.0-46.0); Lymphocytes % (auto) 8.6 % (10.0-50.0); Mean Corpuscular Hemoglobin 32.1 pg (28.0-32.0); Mean Corpuscular Hgb Conc. 35.7 g/dL (32.0-36.0); Mean Corpuscular Volume 89.8 fL (80.0-100.0); Monocytes % (auto) 7.2 % (0.0-12.0); Neutrophils # (auto) 8.4 10 ^3/uL (1.6-8.6); Neutrophils % (auto) 83.7 % (37.0-80.0); Red Blood Cells 2.17 10^6/uL (4.0-5.20); Red Cell Distribution Width 14.6 % (11.8-14.3)
[2020-09-24 06:10] LABS: BUN/Creatinine Ratio 27.8; Calcium 7.4 mg/dL (8.5-10.1); Potassium 3.4 mmol/L (3.5-5.1)
[2020-09-24] MEDS: SUCRALFATE 1 GM/10 ML ORAL SUSP PO SCH ×4 (07:00→23:26)
[2020-09-24] MEDS ORDERED: FLUO10TA18 PO (07:36)
[2020-09-24] MEDS: PANTOPRAZOLE 40 MG/10 ML VIAL INJ IV SCH ×2 (09:30→23:26)
[2020-09-24] MEDS ORDERED: OLANZapine 5 MG TAB PO ONE (10:30)
[2020-09-24] MEDS ORDERED: FLUoxetine HCL 10 MG CAP PO ONE (10:30)
[2020-09-24] MEDS: OXYCODONE W/ ACETAMINOPHEN 5/325MG TABLET PO PRN (10:53)
[2020-09-24] MEDS: ALPRAZolam 0.5 MG TAB PO PRN (12:57)
[2020-09-24 14:12] LABS: Hematocrit 20.4 % (36.0-46.0); Hemoglobin 7.2 g/dL (12.2-16.2)
[2020-09-24] MEDS ORDERED: LIDOCAINE VISCOUS 2% 15ML UD ONE (15:26)
[2020-09-24] MEDS ORDERED: MIDAZOLAM HCL 5 MG/ML-1ML VIAL ONE (15:27)
[2020-09-24] MEDS ORDERED: fentaNYL CITRATE 100 MCG/2 ML VL ONE (15:27)
[2020-09-24] MEDS ORDERED: diphenhdrAMINE HCL 50 MG/1 ML VL ONE (15:27)
[2020-09-24] MEDS: ATORVASTATIN 20 MG TAB PO SCH (23:26)
[2020-09-24] MEDS: OLANZapine 5 MG TAB PO SCH ×2 (23:27→23:39)
[2020-09-25] VITALS (9 sets, daily range): BP systolic 115–155; BP diastolic 65–86
[2020-09-25 01:23] LABS: Hemoglobin 8.8 g/dL (12.2-16.2)
[2020-09-25] MEDS: SUCRALFATE 1 GM/10 ML ORAL SUSP PO SCH ×4 (06:54→22:52)
[2020-09-25 07:15] LABS: Basophils # (auto) 0 10 ^3/uL (0-0.2); Eosinophils # (auto) 0.1 10 ^3/uL (0-0.8); Eosinophils % (auto) 0.9 % (0.0-7.0); Hemoglobin 7.7 g/dL (12.2-16.2); Lymphocytes # (auto) 0.7 10 ^3/uL (0.4-5.4); Mean Corpuscular Hemoglobin 31.8 pg (28.0-32.0); Nucleated Red Blood Cells % 0.1 %; White Blood Cell 8.9 10^3/uL (4.4-10.8)
[2020-09-25 07:18] LABS: Basophils % (auto) 0.3 % (0.0-2.0); Hematocrit 21.5 % (36.0-46.0); Lymphocytes % (auto) 7.5 % (10.0-50.0); Mean Corpuscular Volume 88.3 fL (80.0-100.0); Monocytes # (auto) 0.5 10 ^3/uL (0-1.3); Monocytes % (auto) 5.9 % (0.0-12.0); Neutrophils # (auto) 7.6 10 ^3/uL (1.6-8.6); Neutrophils % (auto) 85.4 % (37.0-80.0); Red Blood Cells 2.43 10^6/uL (4.0-5.20); Red Cell Distribution Width 14.4 % (11.8-14.3)
[2020-09-25 07:28] LABS: Potassium 3.7 mmol/L (3.5-5.1)
[2020-09-25 07:41] LABS: Albumin 2.5 g/dL (3.4-5.0); BUN/Creatinine Ratio 15.5; Bilirubin, Total 0.7 mg/dL (0.2-1.0); Calcium 7.3 mg/dL (8.5-10.1); Magnesium 2.4 mg/dL (1.6-2.6); Total Protein 4.9 g/dL (6.4-8.2)
[2020-09-25] MEDS: ALBUTEROL SULF 2.5 MG/0.5ML(0.5%) NEB SOLN NEB PRN ×2 (07:58→22:30)
[2020-09-25] MEDS: IPRATROPIUM BROM 0.5 MG/2.5ML INH SOL NEB PRN (07:58)
[2020-09-25] MEDS: OXYCODONE W/ ACETAMINOPHEN 5/325MG TABLET PO PRN ×2 (09:55→16:54)
[2020-09-25] MEDS: FLUoxetine HCL 10 MG CAP PO SCH (09:56)
[2020-09-25] MEDS: PANTOPRAZOLE 40 MG/10 ML VIAL INJ IV SCH ×2 (09:56→22:52)
[2020-09-25] MEDS ORDERED: OLANZapine 5 MG TAB PO SCH (10:00)
[2020-09-25] MEDS: ATORVASTATIN 20 MG TAB PO SCH (22:53)
[2020-09-25] MEDS: ALPRAZolam 0.5 MG TAB PO PRN (22:54)
[2020-09-26 01:07] LABS: Hematocrit 24.4 % (36.0-46.0); Hemoglobin 8.4 g/dL (12.2-16.2)
[2020-09-26] MEDS: OXYCODONE W/ ACETAMINOPHEN 5/325MG TABLET PO PRN ×2 (03:21→09:18)
[2020-09-26 05:41] VITALS: BP 133/70
[2020-09-26] MEDS: ALBUTEROL SULF 2.5 MG/0.5ML(0.5%) NEB SOLN NEB PRN (06:37)
[2020-09-26] MEDS: IPRATROPIUM BROM 0.5 MG/2.5ML INH SOL NEB PRN (06:37)
[2020-09-26] MEDS: SUCRALFATE 1 GM/10 ML ORAL SUSP PO SCH ×2 (06:42→13:20)
[2020-09-26 07:58] LABS: Basophils # (auto) 0 10 ^3/uL (0-0.2); Basophils % (auto) 0.6 % (0.0-2.0); Eosinophils # (auto) 0.3 10 ^3/uL (0-0.8); Hemoglobin 8.8 g/dL (12.2-16.2); Lymphocytes # (auto) 1.1 10 ^3/uL (0.4-5.4); Lymphocytes % (auto) 14.2 % (10.0-50.0); Mean Corpuscular Hemoglobin 31.5 pg (28.0-32.0); Mean Corpuscular Hgb Conc. 35.4 g/dL (32.0-36.0); Monocytes # (auto) 0.6 10 ^3/uL (0-1.3); Monocytes % (auto) 7.6 % (0.0-12.0); Neutrophils # (auto) 5.6 10 ^3/uL (1.6-8.6); Neutrophils % (auto) 73.6 % (37.0-80.0); Nucleated Red Blood Cells % 0.1 %; Red Blood Cells 2.81 10^6/uL (4.0-5.20); Red Cell Distribution Width 15.3 % (11.8-14.3); White Blood Cell 7.6 10^3/uL (4.4-10.8)
[2020-09-26 08:00] VITALS: BP 130/71
[2020-09-26 08:18] LABS: BUN/Creatinine Ratio 16.7; Calcium 7.7 mg/dL (8.5-10.1); Magnesium 2.4 mg/dL (1.6-2.6); Potassium 4.3 mmol/L (3.5-5.1)
[2020-09-26 09:00] VITALS: BP 130/71
[2020-09-26] MEDS: PANTOPRAZOLE 40 MG/10 ML VIAL INJ IV SCH (09:18)
[2020-09-26] MEDS: FLUoxetine HCL 10 MG CAP PO SCH (09:18)
[2020-09-26] MEDS ORDERED: PANT40TA2 PO (12:12)
[2020-09-26 13:00] VITALS: BP 130/79
[2020-09-26] MEDS ORDERED: PANTOPRAZOLE 40 MG TAB PO ONE (14:15)
[2020-09-26 14:24] VITALS: BP 130/71
== END 2020-09-26 15:00 | disposition home or self-care (01) | DRG 377 ==
LOC: ER 16:06 → EDBD 16:06 → TELE 20:23 → TELE-WESTW 22:05
PROVIDERS: ADMIT Nurse Practitioner Acute Care; ATTEND Internal Medicine
PROC: 30233N1 Transfusion of Nonautologous Red Blood Cells into Peripheral Vein, Percutaneous Approach (ICD-10-PCS; 2020-09-21)
PROC: 06H03DZ Insertion of Intraluminal Device into Inferior Vena Cava, Percutaneous Approach (ICD-10-PCS; 2020-09-23)
PROC: 0DB68ZX Excision of Stomach, Via Natural or Artificial Opening Endoscopic, Diagnostic (ICD-10-PCS; 2020-09-24)
PROC: 0DBA8ZX Excision of Jejunum, Via Natural or Artificial Opening Endoscopic, Diagnostic (ICD-10-PCS; principal; 2020-09-24 16:10)
DX: K27.4 Chronic or unspecified peptic ulcer, site unspecified, with hemorrhage (principal); I21.A1 Myocardial infarction type 2; I26.99 Other pulmonary embolism without acute cor pulmonale; J44.1 Chronic obstructive pulmonary disease with (acute) exacerbation; E44.0 Moderate protein-calorie malnutrition; J96.10 Chronic respiratory failure, unspecified whether with hypoxia or hypercapnia; D68.59 Other primary thrombophilia; D64.9 Anemia, unspecified; I10 Essential (primary) hypertension; F17.210 Nicotine dependence, cigarettes, uncomplicated; K44.9 Diaphragmatic hernia without obstruction or gangrene; Z82.3 Family history of stroke; Z86.711 Personal history of pulmonary embolism; Z95.828 Presence of other vascular implants and grafts; Z98.84 Bariatric surgery status; Z79.899 Other long term (current) drug therapy; F41.9 Anxiety disorder, unspecified; F32.9 Major depressive disorder, single episode, unspecified; Z20.822 Contact with and (suspected) exposure to COVID-19
CPT/HCPCS: 36415; 71045; 80048; 80053; 81001; 82270; 83735; 83880; 84484; 85014; 85018; 85025; 85049; 85610; 85730; 86850; 86900; 86901; 86920; 87081; 87426; 93005; 94640; 96361; 96374; 99152; C9113; G0378; J2250